=== PATIENT | female | born 1940 | race African-American/Black ===

== ENCOUNTER → 2019-12-04 | Outpatient (CLI) | payer MEDICARE, MEDICAID ==
[~2019-12-04] MED LIST: AMLO10TA80; AMLO10TA80 PO; ASPI-986 PO; ATEN50TA; ATEN50TA PO; ATOR10TA69 PO; DIPH25CA83 PO; DOCU-138; DOXA2TAB; DOXA4TAB3 PO; HYDR12.529 PO; INSU3INS6 SUBCUT; LEVA15HF4; LEVA15HF4 IH; VALS160T2 PO
== END | disposition home or self-care (01) ==
LOC: RAD 11:21
PROVIDERS: ATTEND Internal Medicine Pulmonary Disease
DX: R05 Cough (principal)
CPT/HCPCS: 71046

== ENCOUNTER → 2019-12-12 | Outpatient (CLI) | payer MEDICARE, MEDICAID ==
[~2019-12-12] MED LIST changes: +BARIUM SULFATE 176 GM SUSP.RECON ONE; +BUDE6HFA IH; +BUDE6HFA INH; +EZ-HD SUSPENSION(BARIUM SULFATE 340GM) PO ONE; +SIMETHICONE/SOD BICARB/CIT AC 1 EACH GRAN.EF.PK ONE; +prednisone
== END | disposition home or self-care (01) ==
LOC: RAD 08:48
PROVIDERS: ATTEND Internal Medicine Nephrology
DX: R59.0 Localized enlarged lymph nodes (principal); E04.9 Nontoxic goiter, unspecified
CPT/HCPCS: 70490; 74220; J7517

== ENCOUNTER 2019-12-21 13:29 | Inpatient (IN) | payer MEDICARE, MEDICAID ==
[~2019-12-21] VITALS: Ht 162.6 cm; Wt 69.4 kg
[~2019-12-21 13:29] MED LIST changes: -BARIUM SULFATE 176 GM SUSP.RECON ONE; -BUDE6HFA IH; -BUDE6HFA INH; -EZ-HD SUSPENSION(BARIUM SULFATE 340GM) PO ONE; -SIMETHICONE/SOD BICARB/CIT AC 1 EACH GRAN.EF.PK ONE; -prednisone
[2019-12-21] MEDS ORDERED: BUDE6HFA IH (13:55)
[2019-12-21] MEDS ORDERED: BUDE6HFA INH (13:55)
[2019-12-21] MEDS ORDERED: prednisone (13:55)
[2019-12-21] MEDS ORDERED: DEXT 5%/0.45% NACL 1000ML 1,000 ML IV ONE (14:39)
[2019-12-21] MEDS ORDERED: MORPHINE SULFATE 4 MG/ML CPJ (NOT FOR IM USE) IV STA (14:39)
[2019-12-21] MEDS ORDERED: ONDANSETRON HCL 4MG/2ML INJ IV STA (14:39)
[2019-12-21 15:13] LABS: HEMATOCRIT. 39.4 % (36.0-48.0); HEMOGLOBIN. 12.8 g/dL (12.0-16.0); MEAN CORPUSCULAR HEMOGLOBIN 27.1 pg (28.0-32.0); MEAN CORPUSCULAR VOLUME 83.1 fL (81.0-99.0); MEAN PLATELET VOLUME 8.8 fl (7.4-10.4); PLATELET 121 x1000/uL (130-400); RED BLOOD CELL COUNT 4.74 mill/uL (4.2-5.4); RED CELL DISTRIBUTION WIDTH 16.1 % (11.6-14.6)
[2019-12-21 15:16] LABS: CHLORIDE 96 mEq/L (98-107)
[2019-12-21 15:18] LABS: INR 1.1; PARTIAL THROMBOPLASTIN TIME 27.6 sec (23.4-31.0); PROTHROMBIN TIME 11.9 sec (9.6-11.0)
[2019-12-21 16:29] LABS: PLATELET ESTIMATE DECREASED
[2019-12-21] MEDS ORDERED: IOHEXOL-300 100 ML BOTTLE ONE (16:41)
[2019-12-21] MEDS ORDERED: PIPERACILLIN/TAZ 3.375G PREMIX 50 ML IV ONE (18:15)
[2019-12-21] MEDS ORDERED: VANCOMYCIN 1 G PREMIX 200 ML IV SCH (18:15)
[2019-12-21] MEDS ORDERED: VANCOMYCIN 1,000 MG in DEXT 5% WATER 250 ML IV NR (19:15)
[2019-12-21] MEDS ORDERED: MAGNESIUM/ALUMINUM HYDROXIDE/SIMETHICONE 30ML UDC PO PRN (20:15)
[2019-12-21] MEDS ORDERED: DOCUSATE SODIUM 100MG CAPSULE PO PRN (20:15)
[2019-12-21] MEDS ORDERED: HYDROMORPHONE HCL/PF 2MG/ML CPJ IV PRN (20:15)
[2019-12-21] MEDS ORDERED: ZOLPIDEM TARTRATE 5MG TABLET PO PRN (20:15)
[2019-12-21] MEDS ORDERED: DEXTROSE 50% WATER 50ML SYRINGE IV PRN (20:15)
[2019-12-21] MEDS ORDERED: ACETAMINOPHEN 325MG TABLET PO PRN ×2 (20:15)
[2019-12-21] MEDS ORDERED: CLONIDINE 0.1MG TABLET PO PRN (20:15)
[2019-12-21] MEDS ORDERED: IPRATROPIUM/ALBUTEROL 0.5-3(2.5)MG/3ML NEB NEB PRN (20:15)
[2019-12-21] MEDS ORDERED: ONDANSETRON HCL 4MG/2ML INJ IV PRN (20:15)
[2019-12-21] MEDS: POTASSIUM CHLORIDE INJ 10 MEQ in SODIUM CHLORIDE 0.9% 1,000 ML IV SCH (22:28)
[2019-12-21] MEDS ORDERED: INSULIN LISPRO 100 UNITS/ML SUBCUT SCH (22:30)
[2019-12-21] MEDS: DOCUSATE SODIUM 100MG CAPSULE PO SCH (23:00)
[2019-12-22] VITALS (7 sets, daily range): BP systolic 115–131; BP diastolic 52–63
[2019-12-22 05:57] LABS: CHLORIDE 100 mEq/L (98-107)
[2019-12-22 06:03] LABS: PHOSPHORUS 2.7 mg/dL (2.5-4.9)
[2019-12-22 06:15] LABS: HEMATOCRIT. 36.8 % (36.0-48.0); HEMOGLOBIN. 12.2 g/dL (12.0-16.0); MEAN CORPUSCULAR HEMOGLOBIN 27.5 pg (28.0-32.0); MEAN CORPUSCULAR VOLUME 83.1 fL (81.0-99.0); MEAN PLATELET VOLUME 8.9 fl (7.4-10.4); PLATELET 103 x1000/uL (130-400); RED BLOOD CELL COUNT 4.43 mill/uL (4.2-5.4); RED CELL DISTRIBUTION WIDTH 15.9 % (11.6-14.6)
[2019-12-22 06:56] LABS: INR 1.1; PROTHROMBIN TIME 11.9 sec (9.6-11.0)
[2019-12-22 07:12] LABS: PLATELET ESTIMATE NORMAL
[2019-12-22] MEDS ORDERED: POTASSIUM CHLORIDE 20MEQ TABLET SR PO ONE (07:30)
[2019-12-22] MEDS ORDERED: POTASSIUM CHLORIDE 20MEQ TABLET SR PO NR (09:30)
[2019-12-22] MEDS: ENOXAPARIN 40MG/0.4ML SYR SUBCUT SCH (10:35)
[2019-12-22] MEDS: AMLODIPINE 10MG TABLET PO SCH (10:36)
[2019-12-22] MEDS: ATENOLOL 50 MG TABLET PO SCH (10:38)
[2019-12-22] MEDS: BLOOD SUGAR DIAGNOSTIC STRIP TEST SCH ×3 (12:30→20:47)
[2019-12-22] MEDS: PIPERACILLIN/TAZOBACTAM 3.375 G in DEXT 5% WATER 100 ML IV SCH ×2 (12:54→18:01)
[2019-12-22] MEDS ORDERED: PIPERACILLIN/TAZOBACTAM 3.375 G/VIAL IV SCH (14:00)
[2019-12-22] MEDS: VANCOMYCIN 1,000 MG in DEXT 5% WATER 250 ML IV SCH (14:06)
[2019-12-22] MEDS: INSULIN LISPRO 100 UNITS/ML SUBCUT SCH ×3 (14:09→20:43)
[2019-12-22] MEDS: RACEPINEPHRINE 2.25% 0.5ML NEB VIAL HHN SCH ×2 (15:04→21:08)
[2019-12-22 15:37] LABS: CLARITY URINE CLEAR (CLEAR); COLOR URINE YELLOW (YELLOW); KETONES URINE TRACE (NEGATIVE); LEUKOCYTE ESTERASE URINE 1+ (NEGATIVE); NITRITE URINE NEGATIVE (NEGATIVE); OCCULT BLOOD URINE NEGATIVE (NEGATIVE); PROTEIN URINE 1+ (NEGATIVE); SPECIFIC GRAVITY URINE 1.053 (1.005-1.030); UROBILINOGEN URINE 0.2 E.U./dL (0.2-1.0)
[2019-12-22] MEDS: DOXAZOSIN MESYLATE 4MG TABLET PO SCH (17:00)
[2019-12-22] MEDS: ATORVASTATIN CALCIUM 10MG TABLET PO SCH (18:11)
[2019-12-22] MEDS: DOCUSATE SODIUM 100MG CAPSULE PO SCH ×2 (20:40→21:00)
[2019-12-22] MEDS: POTASSIUM CHLORIDE INJ 10 MEQ in SODIUM CHLORIDE 0.9% 1,000 ML IV SCH (23:42)
[2019-12-23] VITALS (13 sets, daily range): BP systolic 111–137; BP diastolic 51–67
[2019-12-23] MEDS: RACEPINEPHRINE 2.25% 0.5ML NEB VIAL HHN SCH ×2 (01:16→13:16)
[2019-12-23] MEDS: PIPERACILLIN/TAZOBACTAM 3.375 G in DEXT 5% WATER 100 ML IV SCH ×3 (02:10→17:19)
[2019-12-23 07:06] LABS: HEMATOCRIT. 37.6 % (36.0-48.0); HEMOGLOBIN. 12.2 g/dL (12.0-16.0); MEAN CORPUSCULAR HEMOGLOBIN 27.1 pg (28.0-32.0); MEAN CORPUSCULAR VOLUME 83.6 fL (81.0-99.0); PLATELET 101 x1000/uL (130-400); RED CELL DISTRIBUTION WIDTH 16.8 % (11.6-14.6)
[2019-12-23 07:07] LABS: CHLORIDE 102 mEq/L (98-107)
[2019-12-23] MEDS: BLOOD SUGAR DIAGNOSTIC STRIP TEST SCH ×4 (07:58→21:12)
[2019-12-23] MEDS: POTASSIUM CHLORIDE INJ 10 MEQ in SODIUM CHLORIDE 0.9% 1,000 ML IV SCH ×2 (08:30→21:10)
[2019-12-23] MEDS: VANCOMYCIN 1,000 MG in DEXT 5% WATER 250 ML IV SCH (09:00)
[2019-12-23] MEDS: INSULIN LISPRO 100 UNITS/ML SUBCUT SCH ×4 (09:00→21:13)
[2019-12-23] MEDS: ATENOLOL 50 MG TABLET PO SCH ×2 (09:01→09:28)
[2019-12-23] MEDS: ENOXAPARIN 40MG/0.4ML SYR SUBCUT SCH (09:02)
[2019-12-23] MEDS: AMLODIPINE 10MG TABLET PO SCH (09:58)
[2019-12-23 10:14] LABS: PLATELET ESTIMATE SLIGHTLY DECREASED
[2019-12-23] MEDS: POTASSIUM CHLORIDE 20MEQ/PACKET PO SCH ×2 (10:16→16:39)
[2019-12-23] MEDS ORDERED: NON FORMULARY PATIENT HOME MED PO SCH (14:00)
[2019-12-23] MEDS: ACYCLOVIR 200 MG/5 ML ORAL SYR PO SCH ×3 (14:00→21:12)
[2019-12-23] MEDS: ATORVASTATIN CALCIUM 10MG TABLET PO SCH (16:39)
[2019-12-23] MEDS: DOXAZOSIN MESYLATE 4MG TABLET PO SCH (16:40)
[2019-12-23] MEDS: DOCUSATE SODIUM 100MG CAPSULE PO SCH (21:00)
[2019-12-24] VITALS (13 sets, daily range): BP systolic 109–159; BP diastolic 41–85
[2019-12-24] MEDS: RACEPINEPHRINE 2.25% 0.5ML NEB VIAL HHN SCH ×5 (01:08→22:26)
[2019-12-24] MEDS: PIPERACILLIN/TAZOBACTAM 3.375 G in DEXT 5% WATER 100 ML IV SCH ×3 (01:57→17:07)
[2019-12-24] MEDS: VANCOMYCIN 1,000 MG in DEXT 5% WATER 250 ML IV SCH ×2 (02:46→20:53)
[2019-12-24] MEDS: ACYCLOVIR 200 MG/5 ML ORAL SYR PO SCH ×6 (05:48→22:56)
[2019-12-24 07:05] LABS: HEMATOCRIT. 37.7 % (36.0-48.0); HEMOGLOBIN. 12.2 g/dL (12.0-16.0); MEAN CORPUSCULAR HEMOGLOBIN 27.4 pg (28.0-32.0); MEAN CORPUSCULAR VOLUME 84.4 fL (81.0-99.0); MEAN PLATELET VOLUME 9.2 fl (7.4-10.4); PLATELET 90 x1000/uL (130-400); RED BLOOD CELL COUNT 4.47 mill/uL (4.2-5.4); RED CELL DISTRIBUTION WIDTH 16.3 % (11.6-14.6)
[2019-12-24 07:26] LABS: CHLORIDE 103 mEq/L (98-107)
[2019-12-24] MEDS: BLOOD SUGAR DIAGNOSTIC STRIP TEST SCH ×4 (07:30→20:54)
[2019-12-24] MEDS: ENOXAPARIN 40MG/0.4ML SYR SUBCUT SCH (09:00)
[2019-12-24] MEDS: AMLODIPINE 10MG TABLET PO SCH (09:48)
[2019-12-24] MEDS: ATENOLOL 50 MG TABLET PO SCH (09:49)
[2019-12-24] MEDS: INSULIN LISPRO 100 UNITS/ML SUBCUT SCH ×4 (10:13→21:00)
[2019-12-24] MEDS: POTASSIUM CHLORIDE INJ 10 MEQ in SODIUM CHLORIDE 0.9% 1,000 ML IV SCH ×2 (13:33→22:55)
[2019-12-24] MEDS: ATORVASTATIN CALCIUM 10MG TABLET PO SCH (17:07)
[2019-12-24] MEDS: DOXAZOSIN MESYLATE 4MG TABLET PO SCH (17:07)
[2019-12-24 17:23] LABS: PLATELET ESTIMATE DECREASED
[2019-12-24] MEDS: DOCUSATE SODIUM 100MG CAPSULE PO SCH ×2 (20:53→21:00)
[2019-12-25] VITALS (30 sets, daily range): BP systolic 46–140; BP diastolic 26–81
[2019-12-25] MEDS: RACEPINEPHRINE 2.25% 0.5ML NEB VIAL HHN SCH (00:17)
[2019-12-25] MEDS: PIPERACILLIN/TAZOBACTAM 3.375 G in DEXT 5% WATER 100 ML IV SCH (02:46)
[2019-12-25] MEDS ORDERED: EPINEPHRINE 1 MG in SODIUM CHLORIDE 0.9% 249 ML IV PRN (04:45)
[2019-12-25] MEDS ORDERED: EPINEPHRINE 0.1MG/ML (1:10,000) 10ML SYR ONE (05:00)
[2019-12-25] MEDS ORDERED: NOREPINEPHRINE 16 MG in DEXT 5% WATER 234 ML IV PRN (05:18)
[2019-12-25] MEDS ORDERED: SODIUM CHLORIDE 0.9% 250 ML IV NR (05:30)
[2019-12-25] MEDS: ACYCLOVIR 200 MG/5 ML ORAL SYR PO SCH (06:00)
[2019-12-25] MEDS ORDERED: PHENYLEPHRINE 40 MG in DEXT 5% WATER 246 ML IV PRN (06:00)
[2019-12-25] MEDS: BLOOD SUGAR DIAGNOSTIC STRIP TEST SCH (07:48)
[2019-12-25 08:29] LABS: BG CARBOXYHEMOGLOBIN 1.4 % (0.5-1.5); BG DEOXYHEMOGLOBIN 2.8 % (0.0-5.0); BG FRACTION INSPIRED OXYGEN 100; BG HCO3 ACT 13.5 mmol/L (22.0-26.0); BG METHEMOGLOBIN 1.3 % (0.0-1.5); BG OXYGEN SATURATION 97.1 % (92.0-98.5); BG OXYHEMOGLOBIN 94.5 % (94.0-97.0); BG PCO2 45.5 mmHg (35.0-45.0); BG SAMPLE SITE RIGHT RADIAL; BG TIDAL VOLUME(mL) 500 mL; BG TOTAL HEMOGLOBIN 6.4 g/dL (12.0-18.0); BG VENT MODE VENT - A/C; BG VENT RATE 14 set
[2019-12-25] MEDS ORDERED: EPINEPHRINE 4 MG in SODIUM CHLORIDE 0.9% 246 ML IV PRN (08:30)
[2019-12-25] MEDS ORDERED: KCL 20MEQ/100ML PREMIX 100 ML IV ONE (08:30)
[2019-12-25] MEDS ORDERED: SODIUM BICARBONATE 8.4% 1 MEQ/ML 50ML SYR IV ONE ×2 (08:58→09:00)
[2019-12-25] MEDS ORDERED: SODIUM BICARBONATE 100 MEQ in DEXTROSE 5% WATER 1,000 ML IV SCH (10:00)
== END 2019-12-25 09:47 | disposition expired | DRG 871 ==
LOC: ER 13:29 → 5EST 18:10 → EDBEDREQTM 18:15 → EDBEDREQ 18:15 → EDBEDREQSVC 18:16 → ENRESERV 12-22 07:25 → 5EST 12-25 05:00
PROVIDERS: ADMIT Internal Medicine Nephrology; ATTEND Internal Medicine Nephrology
PROC: 0BH18EZ Insertion of Endotracheal Airway into Trachea, Via Natural or Artificial Opening Endoscopic (ICD-10-PCS; principal; 2019-12-25)
PROC: 5A1935Z Respiratory Ventilation, Less than 24 Consecutive Hours (ICD-10-PCS; 2019-12-25)
PROC: 5A12012 Performance of Cardiac Output, Single, Manual (ICD-10-PCS; 2019-12-25)
PROC: 5A2204Z Restoration of Cardiac Rhythm, Single (ICD-10-PCS; 2019-12-25)
DX: A41.9 Sepsis, unspecified organism (principal); J96.00 Acute respiratory failure, unspecified whether with hypoxia or hypercapnia; I13.0 Hypertensive heart and chronic kidney disease with heart failure and stage 1 through stage 4 chronic kidney disease, or unspecified chronic kidney disease; I47.2 Ventricular tachycardia; E87.2 Acidosis; C76.0 Malignant neoplasm of head, face and neck; N18.2 Chronic kidney disease, stage 2 (mild); E11.22 Type 2 diabetes mellitus with diabetic chronic kidney disease; E11.51 Type 2 diabetes mellitus with diabetic peripheral angiopathy without gangrene; I25.10 Atherosclerotic heart disease of native coronary artery without angina pectoris; E78.5 Hyperlipidemia, unspecified; E86.0 Dehydration; J44.9 Chronic obstructive pulmonary disease, unspecified; I49.01 Ventricular fibrillation; I49.5 Sick sinus syndrome; R63.0 Anorexia; M19.90 Unspecified osteoarthritis, unspecified site; I46.9 Cardiac arrest, cause unspecified; J39.8 Other specified diseases of upper respiratory tract; I50.9 Heart failure, unspecified; Z20.828 Contact with and (suspected) exposure to other viral communicable diseases; J35.1 Hypertrophy of tonsils; Z88.8 Allergy status to other drugs, medicaments and biological substances; Z79.4 Long term (current) use of insulin; Z79.82 Long term (current) use of aspirin; Z79.899 Other long term (current) drug therapy; I25.2 Old myocardial infarction; Z95.0 Presence of cardiac pacemaker; Z83.3 Family history of diabetes mellitus; Z82.49 Family history of ischemic heart disease and other diseases of the circulatory system; Z95.5 Presence of coronary angioplasty implant and graft; R13.10 Dysphagia, unspecified; C32.9 Malignant neoplasm of larynx, unspecified; I95.9 Hypotension, unspecified
CPT/HCPCS: 36415; 36600; 70491; 71045; 80048; 80053; 80202; 81003; 82375; 82805; 82962; 83036; 83605; 83735; 83880; 84100; 84484; 85025; 87635; 92610; 92950; 93005; 94002; 94003; 94640; 99291; J1650; J1815; J2270; J2370; J2405; J2543; J3370; J3480; J3490; J7030; J7050; J7060; J7070; Q9967